=== PATIENT | female | born 1955 | race Asian ===

== ENCOUNTER 2017-11-02 22:47 | Inpatient (IN) | payer BC ==
[~2017-11-02] VITALS: Ht 160 cm; Wt 53.5 kg
[2017-11-02 22:47] VITALS: BP_SYST 102
[2017-11-02] MEDS ORDERED: ASPIRIN 81 MG TAB.CHEW PO ONE (23:00)
[2017-11-02 23:15] LABS: BASOPHILS # (AUTO) 0.1 K/uL (0.0-0.2); BASOPHILS % (AUTO) 1.2 % (0.0-2.0); EOSINOPHILS # (AUTO) 0.3 K/uL (0.0-0.4); EOSINOPHILS % (AUTO) 4.3 % (0.0-4.0); HEMATOCRIT 39.2 % (36-48); HEMOGLOBIN 12.8 g/dL (12.0-16.0); LYMPHOCYTES # (AUTO) 1.5 K/uL (1.0-5.5); MEAN CORPUSCULAR HEMOGLOBIN 31 pg (27-31); MEAN CORPUSCULAR HGB CONC 33 % (32-36); MEAN CORPUSCULAR VOLUME 94 fL (79.0-98.0); MONOCYTES # (AUTO) 0.4 K/uL (0.0-1.0); MONOCYTES % (AUTO) 4.9 % (1.7-9.3); NEUTROPHILS # (AUTO) 5.4 K/uL (1.8-7.7); NEUTROPHILS % (AUTO) 70.6 % (40.0-70.0); PLATELET COUNT (AUTO) 330 K/uL (130-430); RED BLOOD CELL COUNT(AUTO) 4.18 MIL/uL (4.2-6.2); RED CELL DISTRIBUTION WIDTH 12.3 % (9.0-15.0); WHITE BLOOD COUNT (AUTO) 7.7 K/uL (4.8-10.8)
[2017-11-02 23:30] LABS: CALCIUM 8.6 mg/dL (8.4-11.0); CREATININE 0.89 mg/dL (0.55-1.30); POTASSIUM 4.2 mmol/L (3.5-5.1)
[2017-11-02 23:34] LABS: ALBUMIN 3.7 g/dL (3.4-4.8); PROTHROMBIN TIME 10.5 SECS (9.5-12.5); TOTAL BILIRUBIN 0.4 mg/dL (0.0-1.0)
[2017-11-03] MEDS ORDERED: MONT10TA22 (00:32)
[2017-11-03] MEDS ORDERED: FLO44 INH (00:33)
[2017-11-03] MEDS ORDERED: METO25TA6 PO (00:35)
[2017-11-03] MEDS ORDERED: NITROGLYCERIN 0.4 MG TAB.SUBL SL PRN (01:00)
[2017-11-03] MEDS ORDERED: ACETAMINOPHEN 650 MG/20.3 ML UDC PO PRN (01:00)
[2017-11-03 01:25] VITALS: BP_SYST 93
[2017-11-03 08:10] VITALS: BP_SYST 91
[2017-11-03] MEDS ORDERED: ASPIRIN 81 MG TAB.CHEW PO SCH (09:00)
[2017-11-03] MEDS ORDERED: NACL 0.9% 1,000 ML IV SCH (10:45)
[2017-11-03 12:20] LABS: FREE T4 (FREE THYROXINE) 0.7 ng/dL (0.6-1.6); THYROID STIMULATING HORMONE 0.68 uIu/mL (0.34-4.82)
[2017-11-03 12:26] VITALS: BP_SYST 106
[2017-11-03 14:06] VITALS: BP_SYST 106
[2017-11-03] MEDS ORDERED: METO25TA3 PO (14:20)
[2017-11-03] MEDS ORDERED: METOPROLOL TARTRATE 25 MG TABLET PO SCH (21:00)
[2017-11-03] MEDS ORDERED: FLUTICASONE 44 mcg/ACTUATION MDI AER.W.ADAP INH SCH (21:00)
[2017-11-04] MEDS ORDERED: MONTELUKAST 10 MG TABLET PO SCH (09:00)
== END 2017-11-03 14:50 | disposition home or self-care (01) | DRG 310 ==
LOC: SED 22:47 → STU 11-03 00:57
PROVIDERS: ADMIT Internal Medicine; ATTEND Internal Medicine
DX: I47.1 Supraventricular tachycardia (principal); I25.9 Chronic ischemic heart disease, unspecified; I34.1 Nonrheumatic mitral (valve) prolapse; J45.909 Unspecified asthma, uncomplicated; R73.9 Hyperglycemia, unspecified; Z88.1 Allergy status to other antibiotic agents; Z79.899 Other long term (current) drug therapy
CPT/HCPCS: 36415; 71045; 80053; 80061; 82550-TC; 84439; 84443-TC; 84484; 85025; 85610-TC; 85730-TC; 93005; 99285; J7030

== ENCOUNTER 2018-05-27 08:50 | Outpatient (CLI) | payer BC ==
[~2018-05-27 08:50] MED LIST: FLO44 INH; METO25TA3 PO; MONT10TA22
== END 2018-05-27 20:22 | disposition home or self-care (01) ==
LOC: SMI 08:50
PROVIDERS: ATTEND Orthopaedic Surgery
DX: R22.41 Localized swelling, mass and lump, right lower limb (principal)
CPT/HCPCS: 73721

== ENCOUNTER 2019-08-18 18:46 | Emergency (ER) | payer BC ==
[~2019-08-18] VITALS: Ht 160 cm; Wt 53.1 kg
[2019-08-18 18:49] VITALS: BP_SYST 108
[2019-08-18] MEDS ORDERED: NACL 0.9% 1,000 ML IV ONE (20:15)
[2019-08-18 20:30] LABS: BASOPHILS # (AUTO) 0.1 K/uL (0.0-0.2); BASOPHILS % (AUTO) 1.8 % (0.0-2.0); CALCIUM 8.5 mg/dL (8.4-11.0); CREATININE 0.79 mg/dL (0.55-1.30); EOSINOPHILS # (AUTO) 0.5 K/uL (0.0-0.4); EOSINOPHILS % (AUTO) 8.9 % (0.0-4.0); HEMATOCRIT 35.7 % (36-48); HEMOGLOBIN 12.1 g/dL (12.0-16.0); LYMPHOCYTES # (AUTO) 2.4 K/uL (1.0-5.5); LYMPHOCYTES % (AUTO) 46.3 % (20.5-51.5); MEAN CORPUSCULAR HEMOGLOBIN 33 pg (27-31); MEAN CORPUSCULAR HGB CONC 34 % (32-36); MEAN CORPUSCULAR VOLUME 96 fL (79.0-98.0); MONOCYTES # (AUTO) 0.4 K/uL (0.0-1.0); NEUTROPHILS # (AUTO) 1.9 K/uL (1.8-7.7); PLATELET COUNT (AUTO) 249 K/uL (130-430); POTASSIUM 3.7 mmol/L (3.5-5.1); RED BLOOD CELL COUNT(AUTO) 3.73 MIL/uL (4.2-6.2); WHITE BLOOD COUNT (AUTO) 5.2 K/uL (4.8-10.8)
[2019-08-18 20:34] LABS: PROTHROMBIN TIME 10.2 SECS (9.5-12.5)
[2019-08-18 20:35] LABS: ALBUMIN 4.1 g/dL (3.4-4.8); TOTAL BILIRUBIN 0.4 mg/dL (0.0-1.0)
[2019-08-18 22:09] VITALS: BP_SYST 135
== END 2019-08-18 22:09 | disposition home or self-care (01) ==
LOC: SED 18:46
DX: R00.2 Palpitations (principal); R53.1 Weakness; J45.909 Unspecified asthma, uncomplicated; Z88.1 Allergy status to other antibiotic agents
CPT/HCPCS: 36415; 71045; 80053; 82550; 83690; 83880; 84484; 85025; 85610; 85730; 93005; 99284; G0482; J7030